=== PATIENT | male | born 1990 | race Two or more races ===

== ENCOUNTER → 2025-01-02 | Emergency (ER) | payer OTHER ==
[~2025-01-02] VITALS: Ht 172.7 cm; Wt 78.5 kg
[~2025-01-02] MED LIST: DIPHTH,PERTUSS(ACELL),TET VAC 0.5 ML VIAL IM ONE; LIDOCAINE HCL 1% 10ML VIAL PERCUT ONE
== END | disposition home or self-care (01) ==
LOC: ER 18:10
DX: S61.422A Laceration with foreign body of left hand, initial encounter (principal); W25.XXXA Contact with sharp glass, initial encounter; Y93.89 Activity, other specified; Y92.89 Other specified places as the place of occurrence of the external cause

== ENCOUNTER 2025-01-09 14:53 | Emergency (ER) | payer OTHER ==
[~2025-01-09] VITALS: Ht 172.7 cm; Wt 78.5 kg
[2025-01-09] MEDS ORDERED: CEFTRIAXONE SODIUM 1,000 MG VIAL IM ONE (15:30)
[2025-01-09] MEDS ORDERED: CEFADROXIL500 MG PO (15:36)
[2025-01-09] MEDS ORDERED: CEFTRIAXONE SODIUM 1,000 MG VIAL ONE (15:50)
== END 2025-01-09 16:08 | disposition home or self-care (01) ==
LOC: ER 14:53
DX: Z48.02 Encounter for removal of sutures (principal); L53.9 Erythematous condition, unspecified